=== PATIENT | female | born 1965 | race Caucasian/White ===

== ENCOUNTER → 2020-08-01 | Outpatient (CLI) | payer OTHER ==
[~2020-08-01] MED LIST: ASPIRIN CHEWABL81 MG PO; BACTROBAN OINT22 GM TOP; KEFLEX CAP 250250 MG PO; LEVAQUIN500 MG PO; MEDROL DOSEPAK 24 MG PO; MEGA BIOTIN10000 MCG PO; PLAQUENIL 200200 MG PO; PROPYLTHIOURACI50 MG PO; PROVENTIL HFA6.7 GM INH
[2020-08-01 15:43] LABS: HEMOGLOBIN 13.2 gm/dl (12.3-15.3); RED BLOOD COUNT 5.14 M/UL (4.00-5.10); WHITE BLOOD COUNT 3.8 K/UL (4.5-11.0)
[2020-08-01 16:16] LABS: BUN/CREATININE RATIO 17 (0-10)
[2020-08-02 11:13] LABS: HBSAG SCREEN Negative (Negative); HCV ANTIBODY 0.1 (0.0-0.9)
[2020-08-02 12:13] LABS: COMPLEMENT C3, SERUM 160 mg/dL (82-167); COMPLEMENT C4, SERUM 17 mg/dL (12-38)
[2020-08-03 02:09] LABS: HEP B CORE AB, TOT Negative (Negative)
[2020-08-06 10:10] LABS: DSDNA CRITHIDIA LUCILIAE IFA Negative (Negative)
== END ==
LOC: LAB 14:31
PROVIDERS: Internal Medicine
DX: M32.9 Systemic lupus erythematosus, unspecified (principal); Z79.899 Other long term (current) drug therapy
CPT/HCPCS: 36415; 80053; 81001; 82570; 84156; 85025; 86160; 86162; 86255; 86317; 86704; 86803; 87340

== ENCOUNTER 2020-09-17 21:34 | Emergency (ER) | payer OTHER ==
[~2020-09-17 21:34] MED LIST changes: -BACTROBAN OINT22 GM TOP; -KEFLEX CAP 250250 MG PO
[2020-09-17] MEDS ORDERED: KEFLEX CAP 250250 MG PO (23:36)
[2020-09-17] MEDS ORDERED: BACTROBAN OINT22 GM TOP (23:36)
== END 2020-09-17 23:59 | disposition home or self-care (01) ==
LOC: ER1 21:34
DX: T21.25XA Burn of second degree of buttock, initial encounter (principal); T21.27XA Burn of second degree of female genital region, initial encounter; I10 Essential (primary) hypertension; Z90.49 Acquired absence of other specified parts of digestive tract; Z90.89 Acquired absence of other organs; Z91.040 Latex allergy status; Z88.8 Allergy status to other drugs, medicaments and biological substances; X16.XXXA Contact with hot heating appliances, radiators and pipes, initial encounter
CPT/HCPCS: 99283